=== PATIENT | male | born 1980 | race Caucasian/White ===

== ENCOUNTER 2017-09-19 19:49 | Emergency (ER) | payer OTHER ==
[2017-09-19] MEDS: NS 1,000 ML IV (20:32)
[2017-09-19] MEDS: dexameTHASONE 20 MG/5 ML VIAL (J1100) IV (20:36)
[2017-09-19] MEDS: CLINDAMYCIN 900 MG in APPROPRIATE DILUENT 1 EA IV (20:36)
[2017-09-19 20:53] LABS: BASO % 0.3 % (0.0-1.0); EOS # 0.2 10^3/uL (0.0-0.50); HEMATOCRIT 41.8 % (42.0-52.0); HEMOGLOBIN 13.6 g/dl (14.0-18.0); IMMATURE GRANULOCYTE # 0.1 10^3/uL (0-0); IMMATURE GRANULOCYTE % 0.4 % (0-0); LYMPH # 1.7 10^3/uL (1.5-4.5); LYMPH % 10.6 % (24.0-44.0); MEAN CORPUSCULAR HEMOGLOBIN 28.5 pg (27.0-33.0); MEAN CORPUSCULAR HGB CONC 32.5 g/dl (32.0-36.5); MEAN CORPUSCULAR VOLUME 87.4 fl (80.0-96.0); MONO # 1.4 10^3/uL (0.0-0.8); NEUTROPHILS # 12.4 10^3/uL (1.8-7.7); NEUTROPHILS % 78.7 % (36.0-66.0); PLATELET COUNT, AUTOMATED 400 10^3/uL (150-450); RED BLOOD COUNT 4.78 10^6/uL (4.30-6.10); RED CELL DISTRIBUTION WIDTH 12.3 % (11.5-14.5); WHITE BLOOD COUNT 15.7 10^3/uL (4.0-10.0)
[2017-09-19 21:11] LABS: ALBUMIN 4.2 GM/DL (3.2-5.2); ALBUMIN/GLOBULIN RATIO 1.02 (1.00-1.93); ALKALINE PHOSPHATASE 69 U/L (45-117); ALT/SGPT 27 U/L (12-78); ANION GAP 6 MEQ/L (8-16); AST/SGOT 23 U/L (7-37); BILIRUBIN,DIRECT 0.2 MG/DL (0.0-0.2); BILIRUBIN,TOTAL 0.7 MG/DL (0.2-1.0); BLOOD UREA NITROGEN 13 MG/DL (7-18); CALCIUM LEVEL 9.5 MG/DL (8.5-10.1); CARBON DIOXIDE LEVEL 31 MEQ/L (21-32); CHLORIDE LEVEL 99 MEQ/L (98-107); CREATININE FOR GFR 1.05 MG/DL (0.70-1.30); GLOMERULAR FILTRATION RATE > 60.0 (>60); GLUCOSE, FASTING 108 MG/DL (70-100); POTASSIUM SERUM 4.2 MEQ/L (3.5-5.1); SODIUM LEVEL 136 MEQ/L (136-145); TOTAL PROTEIN 8.3 GM/DL (6.4-8.2)
[2017-09-19 21:21] LABS: LACTIC ACID SEPSIS PROTOCOL 1.5 MMOL/L (0.4-2.0)
[2017-09-19] MEDS ORDERED: ISOVUE-370 76% 100ML VIAL (Q9967) As Ordered (21:27)
[2017-09-19] MEDS: LIDOCAINE 2% W/EPIN INJ 20ML **PRES FREE INJ (22:15)
[2017-09-19] MEDS ORDERED: CETACAINE SPRAY 5GM As Ordered (22:15)
[2017-09-19 22:34] LABS: INR 1.06; PROTHROMBIN TIME 13.9 SECONDS (12.4-14.5)
== END 2017-09-20 00:20 | disposition home or self-care (01) ==
LOC: M ED 09-20 00:20
DX: J36 Peritonsillar abscess (principal); Z98.890 Other specified postprocedural states
CPT/HCPCS: J1100

== ENCOUNTER 2017-09-22 09:33 | Emergency (ER) | payer OTHER ==
[2017-09-22 10:27] LABS: BASO % 0.3 % (0.0-1.0); EOS # 0.1 10^3/uL (0.0-0.50); EOS % 0.7 % (0.0-3.0); HEMATOCRIT 38.3 % (42.0-52.0); HEMOGLOBIN 12.9 g/dl (14.0-18.0); IMMATURE GRANULOCYTE # 0.1 10^3/uL (0-0); IMMATURE GRANULOCYTE % 0.4 % (0-0); LYMPH # 1.8 10^3/uL (1.5-4.5); LYMPH % 13.7 % (24.0-44.0); MEAN CORPUSCULAR HEMOGLOBIN 29.2 pg (27.0-33.0); MEAN CORPUSCULAR HGB CONC 33.7 g/dl (32.0-36.5); MEAN CORPUSCULAR VOLUME 86.7 fl (80.0-96.0); MONO # 1.3 10^3/uL (0.0-0.8); MONO % 9.6 % (0.0-5.0); NEUTROPHILS # 9.8 10^3/uL (1.8-7.7); NEUTROPHILS % 75.3 % (36.0-66.0); PLATELET COUNT, AUTOMATED 416 10^3/uL (150-450); RED BLOOD COUNT 4.42 10^6/uL (4.30-6.10); RED CELL DISTRIBUTION WIDTH 12.4 % (11.5-14.5)
[2017-09-22] MEDS: dexameTHASONE 20 MG/5 ML VIAL (J1100) IV (10:28)
[2017-09-22] MEDS: LevoFLOXacin IV 750 MG in APPROPRIATE DILUENT 1 EA IV (10:37)
[2017-09-22] MEDS: NS 1,000 ML IV (10:37)
[2017-09-22 10:57] LABS: ALBUMIN 4.1 GM/DL (3.2-5.2); ALBUMIN/GLOBULIN RATIO 0.91 (1.00-1.93); ALKALINE PHOSPHATASE 62 U/L (45-117); ALT/SGPT 27 U/L (12-78); ANION GAP 8 MEQ/L (8-16); AST/SGOT 24 U/L (7-37); BILIRUBIN,DIRECT 0.1 MG/DL (0.0-0.2); BILIRUBIN,TOTAL 0.5 MG/DL (0.2-1.0); BLOOD UREA NITROGEN 11 MG/DL (7-18); C REACTIVE PROTEIN QUANTITATIV 9.26 MG/DL (0.00-0.30); CALCIUM LEVEL 9.5 MG/DL (8.5-10.1); CARBON DIOXIDE LEVEL 28 MEQ/L (21-32); CHLORIDE LEVEL 99 MEQ/L (98-107); CREATININE FOR GFR 0.97 MG/DL (0.70-1.30); GLOMERULAR FILTRATION RATE > 60.0 (>60); GLUCOSE, FASTING 98 MG/DL (70-100); POTASSIUM SERUM 3.8 MEQ/L (3.5-5.1); SODIUM LEVEL 135 MEQ/L (136-145); TOTAL PROTEIN 8.6 GM/DL (6.4-8.2)
== END 2017-09-22 12:10 | disposition home or self-care (01) ==
LOC: M ED 09:33
DX: J36 Peritonsillar abscess (principal); Z79.2 Long term (current) use of antibiotics; Z79.899 Other long term (current) drug therapy; Z98.890 Other specified postprocedural states
CPT/HCPCS: J1956

== ENCOUNTER 2018-01-09 10:12 | Day surgery (SDC) | payer OTHER ==
[2018-01-09] MEDS: LR 1,000 ML IV ×2 (11:50)
[2018-01-09] MEDS: LIDOCAINE 1% MDV 20ML VIAL As Ordered ×2 (13:06)
[2018-01-09] MEDS: BUPIVACAINE HCL 0.25% 10 ML VIAL As Ordered ×2 (13:06)
[2018-01-09] MEDS ORDERED: SUCCINYLCHOLINE 100 MG/5 ML SYRINGE (J0330) As Ordered ×2 (13:09)
[2018-01-09] MEDS ORDERED: ROCURONIUM BROMIDE 50 MG/5 ML VIAL As Ordered ×2 (13:09)
[2018-01-09] MEDS ORDERED: PROPOFOL 200 MG/20 ML VIAL As Ordered ×8 (13:09→13:39)
[2018-01-09] MEDS ORDERED: dexameTHASONE 4 MG/ML 1ML VIAL (J1100) As Ordered ×6 (13:09)
[2018-01-09] MEDS ORDERED: ONDANSETRON 4MG/2ML VIAL (J2405) As Ordered ×2 (13:09)
[2018-01-09] MEDS ORDERED: MIDAZOLAM INJ 2 MG/2 ML VIAL (J2250) As Ordered ×2 (13:09)
[2018-01-09] MEDS ORDERED: fentaNYL 250 MCG/5 ML INJECTION (J3010) As Ordered ×2 (13:09)
[2018-01-09] MEDS ORDERED: GLYCOPYRROLATE INJ 0.2 MG/ML 2 ML VIAL As Ordered ×2 (13:10)
[2018-01-09] MEDS ORDERED: fentaNYL 100 MCG/2 ML INJECTION (J3010) As Ordered ×2 (14:05)
[2018-01-09] MEDS: fentaNYL 100 MCG/2 ML INJECTION (J3010) IV ×8 (14:08→14:55)
[2018-01-09] MEDS ORDERED: IBUPROFEN 100 MG/5 ML SUSP UDC DYE FREE As Ordered ×2 (14:24)
[2018-01-09] MEDS ORDERED: IBUPROFEN 600 MG TAB PO ×2 (14:30)
[2018-01-09] MEDS: ONDANSETRON 4MG/2ML VIAL (J2405) IV ×2 (14:30)
[2018-01-09] MEDS: IBUPROFEN 100 MG/5 ML SUSP UDC DYE FREE PO ×2 (14:30)
[2018-01-09] MEDS ORDERED: LR 1,000 ML IV ×2 (14:30)
== END 2018-01-09 16:15 | disposition home or self-care (01) ==
LOC: M SDC 10:12
DX: J35.01 Chronic tonsillitis (principal); Z87.09 Personal history of other diseases of the respiratory system; Z16.20 Resistance to unspecified antibiotic
CPT/HCPCS: 42826

== ENCOUNTER → 2022-10-24 | Outpatient (CLI) | payer OTHER ==
[~2022-10-24] MED LIST: ACET-716 PO; CEPA5.4L2 MT; CLAR1TAB13 PO; CLEO300C2 PO; FLON1SPR; LEVA750T7 PO; NAPR250T82 PO
[2022-10-24 13:47] LABS: PLATELET COUNT, AUTOMATED 374 10^3/uL (150-450)
[2022-10-24 13:59] LABS: INR 0.91; PARTIAL THROMBOPLASTIN TIME 29.2 SECONDS (24.8-34.2); PROTHROMBIN TIME 12.4 SECONDS (12.5-14.5)
== END ==
LOC: M PLALAB 10:47
PROVIDERS: ATTEND Physician Assistant
DX: Z01.812 Encounter for preprocedural laboratory examination (principal)

== ENCOUNTER 2023-03-04 14:18 | Observation (INO) | payer OTHER ==
[~2023-03-04] VITALS: Ht 188 cm; Wt 113.6 kg
[2023-03-04 16:11] LABS: BASO % 0.3 % (0.0-1.0); EOS % 0.1 % (0.0-3.0); LYMPH # 1.8 10^3/uL (1.5-5.0); LYMPH % 13.3 % (24.0-44.0); MEAN CORPUSCULAR HGB CONC 34.8 g/dl (32.0-36.5); MEAN CORPUSCULAR VOLUME 86.3 fl (80.0-96.0); MONO # 1.2 10^3/uL (0.0-0.8); MONO % 9.1 % (2.0-8.0); NEUTROPHILS # 10.5 10^3/uL (1.5-8.5); NEUTROPHILS % 76.9 % (36.0-66.0); PLATELET COUNT, AUTOMATED 437 10^3/uL (150-450); RED BLOOD COUNT 5.33 10^6/uL (4.30-6.10); WHITE BLOOD COUNT 13.6 10^3/uL (4.0-10.0)
[2023-03-04 16:21] LABS: LIPASE 31 U/L (12-53)
[2023-03-04 16:23] LABS: ALBUMIN 4.4 G/DL (3.2-5.2); ALKALINE PHOSPHATASE 62 U/L (46-116); ALT/SGPT 46 U/L (7.0-40); AST/SGOT 38 U/L (<34); BILIRUBIN,DIRECT 0.2 MG/DL (<0.4); BILIRUBIN,TOTAL 0.7 MG/DL (0.3-1.2); BLOOD UREA NITROGEN 7 MG/DL (9-23); CALCIUM LEVEL 9.4 MG/DL (8.5-10.1); CARBON DIOXIDE LEVEL 24 MMOL/L (20-31); CHLORIDE LEVEL 93 MMOL/L (98-107); CREATININE FOR GFR 0.84 MG/DL (0.70-1.30); GLOMERULAR FILTRATION RATE > 60.0 (>60); GLUCOSE, FASTING 110 MG/DL (60-100); POTASSIUM SERUM 3.2 MMOL/L (3.5-5.1); SODIUM LEVEL 134 MMOL/L (136-145); TOTAL PROTEIN 7.8 G/DL (5.7-8.2)
[2023-03-04 16:34] LABS: RSV AMPLIFICATION NEGATIVE (NEGATIVE)
[2023-03-04] MEDS ORDERED: NS 1,000 ML IV ONE ×2 (17:05→18:25)
[2023-03-04] MEDS ORDERED: BENZONATATE 100MG CAPSULE PO ONE (17:05)
[2023-03-04] MEDS ORDERED: POTASSIUM CHLORIDE 10MEQ SR TABLET PO ONE (17:05)
[2023-03-04] MEDS ORDERED: ONDANSETRON 4MG 2ML VIAL IV ONE ×2 (17:05→21:35)
[2023-03-04] MEDS: IPRATROPIUM 0.5MG/ALBUTEROL 2.5MG INH SOL UD 3ML (DUONEB) NEB PRN ×3 (17:46→20:18)
[2023-03-04 18:20] LABS: C REACTIVE PROTEIN QUANTITATIV < 0.40 MG/DL (<1.0)
[2023-03-04] MEDS ORDERED: ISOVUE-370 76% 100ML VIAL As Ordered ONE (18:38)
[2023-03-04] MEDS ORDERED: ACETAMINOPHEN 500 MG TAB PO ONE (19:20)
[2023-03-04] MEDS ORDERED: LR 1,000 ML IV ONE (21:55)
[2023-03-04] MEDS ORDERED: MED REC IN PROGRESS XX SCH (22:05)
[2023-03-04 22:18] LABS: MONO SCRN NEGATIVE (NEGATIVE)
[2023-03-04] MEDS ORDERED: IBUP-1427 PO (23:06)
[2023-03-04] MEDS ORDERED: ACET-897 PO (23:06)
[2023-03-04] MEDS ORDERED: HOME MED LIST COMPLETE! XX SCH (23:10)
[2023-03-04] MEDS ORDERED: ACETAMINOPHEN TAB 650MG DOSE (2X325MG) PO PRN (23:40)
[2023-03-05] VITALS (7 sets, daily range): BP systolic 154–171; BP diastolic 78–109; TEMP 98–98.7; O2SAT 96–99
[2023-03-05] MEDS ORDERED: ONDANSETRON 4MG 2ML VIAL IV PRN (01:00)
[2023-03-05] MEDS ORDERED: DEXTROMETHORPHAN 60MG/10ML SUSP 90ML BTL(DELSYM) PO PRN (01:00)
[2023-03-05 01:40] LABS: AMPHETAMINES LEVEL URINE NEGATIVE (NEGATIVE); BARBITURATES URINE NEGATIVE (NEGATIVE); BENZODIAZEPINES URINE NEGATIVE (NEGATIVE); CANNABINOIDS URINE NEGATIVE (NEGATIVE); COCAINE METABOLITE URINE NEGATIVE (NEGATIVE); METHADONE URINE NEGATIVE (NEGATIVE); OPIATES URINE NEGATIVE (NEGATIVE); PHENCYCLIDINE URINE NEGATIVE (NEGATIVE)
[2023-03-05 01:46] LABS: BLOOD UREA NITROGEN 9 MG/DL (9-23); CALCIUM LEVEL 9.3 MG/DL (8.5-10.1); CARBON DIOXIDE LEVEL 26 MMOL/L (20-31); CHLORIDE LEVEL 103 MMOL/L (98-107); CREATININE FOR GFR 0.91 MG/DL (0.70-1.30); GLOMERULAR FILTRATION RATE > 60.0 (>60); GLUCOSE, FASTING 103 MG/DL (60-100); POTASSIUM SERUM 3.9 MMOL/L (3.5-5.1); SODIUM LEVEL 137 MMOL/L (136-145)
[2023-03-05 02:24] LABS: ETHYL ALCOHOL (ETHANOL) < 0.003 % (0.000-0.010)
[2023-03-05] MEDS: LR 1,000 ML IV SCH ×2 (02:52→10:42)
[2023-03-05 03:17] LABS: PROCALCITONIN 0.06 ng/ml
[2023-03-05 06:46] LABS: ALBUMIN 3.7 G/DL (3.2-5.2); ALKALINE PHOSPHATASE 59 U/L (46-116); ALT/SGPT 37 U/L (7.0-40); AST/SGOT 57 U/L (<34); BLOOD UREA NITROGEN 9 MG/DL (9-23); CALCIUM LEVEL 8.6 MG/DL (8.5-10.1); CARBON DIOXIDE LEVEL 27 MMOL/L (20-31); CHLORIDE LEVEL 103 MMOL/L (98-107); CREATININE FOR GFR 0.89 MG/DL (0.70-1.30); GLOMERULAR FILTRATION RATE > 60.0 (>60); GLUCOSE, FASTING 122 MG/DL (60-100); POTASSIUM SERUM 3.8 MMOL/L (3.5-5.1); SODIUM LEVEL 139 MMOL/L (136-145); TOTAL PROTEIN 6.6 G/DL (5.7-8.2)
[2023-03-05 07:20] LABS: BASO % 0.4 % (0.0-1.0); EOS % 0.3 % (0.0-3.0); HEMATOCRIT 39.7 % (42.0-52.0); LYMPH # 1.9 10^3/uL (1.5-5.0); LYMPH % 20.1 % (24.0-44.0); MEAN CORPUSCULAR HEMOGLOBIN 29.8 pg (27.0-33.0); MEAN CORPUSCULAR HGB CONC 33.8 g/dl (32.0-36.5); MEAN CORPUSCULAR VOLUME 88.2 fl (80.0-96.0); MONO # 0.8 10^3/uL (0.0-0.8); MONO % 8.7 % (2.0-8.0); NEUTROPHILS # 6.7 10^3/uL (1.5-8.5); PLATELET COUNT, AUTOMATED 339 10^3/uL (150-450); WHITE BLOOD COUNT 9.6 10^3/uL (4.0-10.0)
[2023-03-05 07:30] LABS: HEMOGLOBIN 13.4 g/dl (13.5-17.5)
[2023-03-05 07:44] LABS: MAGNESIUM LEVEL 1.8 MG/DL (1.8-2.4)
[2023-03-05] MEDS ORDERED: CARVedilol 3.125 MG TAB PO SCH (09:00)
[2023-03-05] MEDS ORDERED: NICOTINE 14 MG/24 HR TRANSDERMAL TD SCH (09:00)
[2023-03-05] MEDS ORDERED: guaiFENesin ER 600 MG TAB PO SCH (09:00)
[2023-03-05] MEDS ORDERED: ENOXAPARIN 40MG/0.4ML SYRINGE (J1650 PER 10MG) SC SCH (09:00)
[2023-03-05] MEDS ORDERED: amLODIPine 5 MG TAB PO ONE ×2 (10:50→12:30)
[2023-03-05] MEDS ORDERED: **hydrALAZINE** 50 MG TAB PO ONE ×2 (16:20→17:25)
[2023-03-05] MEDS ORDERED: CARV6.25 PO (16:26)
[2023-03-05] MEDS ORDERED: MUCI600T31 PO (16:26)
[2023-03-05] MEDS ORDERED: AMLO1TAB25 PO (16:26)
[2023-03-05] MEDS ORDERED: ONDA4TAB6 PO (16:26)
[2023-03-06] MEDS ORDERED: amLODIPine 5 MG TAB PO SCH (09:00)
== END 2023-03-05 18:40 | disposition home or self-care (01) ==
LOC: M ED 14:18 → INTOOBSV 23:40 → M ED INP 23:40 → M MS5PR 03-05 02:05
PROVIDERS: ADMIT Internal Medicine; ATTEND Internal Medicine
DX: J22 Unspecified acute lower respiratory infection (principal); I10 Essential (primary) hypertension; R11.2 Nausea with vomiting, unspecified; E87.6 Hypokalemia; E87.21 Acute metabolic acidosis; E87.3 Alkalosis; R05.9 Cough, unspecified; J02.9 Acute pharyngitis, unspecified; J30.2 Other seasonal allergic rhinitis; Z87.891 Personal history of nicotine dependence; Z79.899 Other long term (current) drug therapy
CPT/HCPCS: 36415; 71046; 74177; 80048; 80053; 80076; 80307; 82077; 83605; 83690; 83735; 84145; 85025; 85652; 86140; 86308; 86618; 87040; 87486; 87581; 87631; 87633; 87798; 87880; 94640; 96361; 96372; 96374; 96376; 99284; J1650; J2405; Q9967

== ENCOUNTER 2023-03-18 08:20 | Inpatient (IN) | payer OTHER ==
[~2023-03-18] VITALS: Ht 188 cm; Wt 118.5 kg
[~2023-03-18 08:20] MED LIST changes: +ACET-897 PO; +AMLO1TAB25 PO; +CARV6.25 PO; +IBUP-1427 PO; +MUCI600T31 PO; +ONDA4TAB6 PO
[2023-03-18 09:28] LABS: HEMATOCRIT 42.9 % (42.0-52.0); HEMOGLOBIN 14.6 g/dl (13.5-17.5); MEAN CORPUSCULAR HEMOGLOBIN 29.6 pg (27.0-33.0); PLATELET COUNT, AUTOMATED 385 10^3/uL (150-450); RED BLOOD COUNT 4.93 10^6/uL (4.30-6.10); WHITE BLOOD COUNT 6.6 10^3/uL (4.0-10.0)
[2023-03-18] MEDS ORDERED: TELM1TAB33 PO (09:51)
[2023-03-18] MEDS ORDERED: NICO14DI31 TOP (09:51)
[2023-03-18 09:56] LABS: ETHYL ALCOHOL (ETHANOL) 0.213 % (0.000-0.010)
[2023-03-18 09:57] LABS: SALICYLATE LEVEL < 3.0 MG/DL (<30)
[2023-03-18 09:58] LABS: ALBUMIN 4.1 G/DL (3.2-5.2); ALKALINE PHOSPHATASE 76 U/L (46-116); ALT/SGPT 46 U/L (7.0-40); AST/SGOT 60 U/L (<34); BILIRUBIN,DIRECT 0.1 MG/DL (<0.4); BILIRUBIN,TOTAL 0.4 MG/DL (0.3-1.2); BLOOD UREA NITROGEN 6 MG/DL (9-23); CALCIUM LEVEL 9.5 MG/DL (8.5-10.1); CARBON DIOXIDE LEVEL 22 MMOL/L (20-31); CHLORIDE LEVEL 99 MMOL/L (98-107); CREATININE FOR GFR 0.93 MG/DL (0.70-1.30); GLOMERULAR FILTRATION RATE > 60.0 (>60); GLUCOSE, FASTING 119 MG/DL (60-100); POTASSIUM SERUM 3.3 MMOL/L (3.5-5.1); SODIUM LEVEL 139 MMOL/L (136-145); TOTAL PROTEIN 7.8 G/DL (5.7-8.2)
[2023-03-18] MEDS ORDERED: HOME MED LIST COMPLETE! XX SCH (10:00)
[2023-03-18 10:02] LABS: THYROID STIMULATING HORMONE 0.915 uIU/ML (0.55-4.78)
[2023-03-18] MEDS ORDERED: POTASSIUM CHLORIDE 10MEQ SR TABLET PO ONE (11:00)
[2023-03-18 11:36] LABS: AMPHETAMINES LEVEL URINE NEGATIVE (NEGATIVE); BENZODIAZEPINES URINE NEGATIVE (NEGATIVE)
[2023-03-18 11:37] LABS: BARBITURATES URINE NEGATIVE (NEGATIVE); CANNABINOIDS URINE NEGATIVE (NEGATIVE); COCAINE METABOLITE URINE NEGATIVE (NEGATIVE); METHADONE URINE NEGATIVE (NEGATIVE); OPIATES URINE NEGATIVE (NEGATIVE); PHENCYCLIDINE URINE NEGATIVE (NEGATIVE)
[2023-03-18] MEDS ORDERED: cloNIDine 0.1MG TABLET PO ONE (18:10)
[2023-03-18] MEDS ORDERED: cloNIDine HCL 0.2 MG/24 HR PATCH TOP ONE (19:40)
[2023-03-18] MEDS ORDERED: cloNIDine 0.2 MG TAB PO ONE (20:00)
[2023-03-18] MEDS ORDERED: MOM 30ML SUSPENSION UDC PO PRN (21:45)
[2023-03-18] MEDS ORDERED: ACETAMINOPHEN TAB 650MG DOSE (2X325MG) PO PRN (21:45)
[2023-03-18] MEDS ORDERED: diphenhydrAMINE 25MG CAP PO PRN (21:45)
[2023-03-18] MEDS ORDERED: IBUPROFEN 400MG TAB PO PRN (21:45)
[2023-03-18] MEDS ORDERED: MAALOX 30 ML SUSP *UDC PO PRN (21:45)
[2023-03-18] MEDS ORDERED: traZODone 50 MG TAB PO PRN (21:45)
[2023-03-18 22:05] VITALS: BP 138/82; TEMP 97.5; O2SAT 100
[2023-03-19 05:53] VITALS: BP 148/84; TEMP 98.4; O2SAT 98
[2023-03-19 08:24] VITALS: BP 158/96
[2023-03-19] MEDS: NICOTINE 14 MG/24 HR TRANSDERMAL TOP SCH (08:26)
[2023-03-19] MEDS: SERTRALINE HCL 25 MG TABLET PO SCH (08:26)
[2023-03-19] MEDS: TELMISARTAN 20 MG TAB PO SCH (09:42)
[2023-03-19 09:44] LABS: BLOOD UREA NITROGEN 6 MG/DL (9-23); CALCIUM LEVEL 9.7 MG/DL (8.5-10.1); CARBON DIOXIDE LEVEL 24 MMOL/L (20-31); CHLORIDE LEVEL 99 MMOL/L (98-107); CREATININE FOR GFR 0.91 MG/DL (0.70-1.30); GLOMERULAR FILTRATION RATE > 60.0 (>60); GLUCOSE, FASTING 107 MG/DL (60-100); POTASSIUM SERUM 3.2 MMOL/L (3.5-5.1); SODIUM LEVEL 134 MMOL/L (136-145)
[2023-03-19] MEDS ORDERED: POTASSIUM CHLORIDE 10MEQ SR TABLET PO ONE (10:15)
[2023-03-19 17:52] VITALS: BP 140/98; TEMP 98; O2SAT 99
[2023-03-20 07:53] VITALS: BP 143/90
[2023-03-20] MEDS: SERTRALINE HCL 25 MG TABLET PO SCH (07:53)
[2023-03-20] MEDS: TELMISARTAN 20 MG TAB PO SCH (07:54)
[2023-03-20] MEDS: NICOTINE 14 MG/24 HR TRANSDERMAL TOP SCH (07:55)
[2023-03-20] MEDS ORDERED: TRAZ-252 PO (12:51)
[2023-03-20] MEDS ORDERED: SERT25TA21 PO (12:51)
== END 2023-03-20 13:48 | disposition home or self-care (01) | DRG 881 ==
LOC: M ED 08:20 → M ED INP 21:43 → M PSY 22:09
PROVIDERS: ADMIT Student in an Organized Health Care Education/Training Program; ATTEND Student in an Organized Health Care Education/Training Program
DX: F43.21 Adjustment disorder with depressed mood (principal); R45.851 Suicidal ideations; E87.20 Acidosis, unspecified; F41.1 Generalized anxiety disorder; F10.10 Alcohol abuse, uncomplicated; E87.6 Hypokalemia; I10 Essential (primary) hypertension; F17.200 Nicotine dependence, unspecified, uncomplicated; Z79.899 Other long term (current) drug therapy; Z20.822 Contact with and (suspected) exposure to COVID-19; Z90.49 Acquired absence of other specified parts of digestive tract

== ENCOUNTER 2023-04-07 16:40 | Inpatient (IN) | payer OTHER ==
[~2023-04-07] VITALS: Ht 188 cm; Wt 113.6 kg
[~2023-04-07 16:40] MED LIST changes: +NICO14DI31 TOP; +SERT25TA21 PO; +TELM1TAB33 PO; +TRAZ-252 PO
[2023-04-07 17:41] LABS: HEMATOCRIT 45.4 % (42.0-52.0); HEMOGLOBIN 15.6 g/dl (13.5-17.5); MEAN CORPUSCULAR HEMOGLOBIN 29.7 pg (27.0-33.0); MEAN CORPUSCULAR HGB CONC 34.4 g/dl (32.0-36.5); MEAN CORPUSCULAR VOLUME 86.5 fl (80.0-96.0); PLATELET COUNT, AUTOMATED 430 10^3/uL (150-450); RED BLOOD COUNT 5.25 10^6/uL (4.30-6.10); WHITE BLOOD COUNT 7.7 10^3/uL (4.0-10.0)
[2023-04-07 18:01] LABS: ACETAMINOPHEN LEVEL < 2.0 UG/ML (10.0-20.0)
[2023-04-07 18:02] LABS: SALICYLATE LEVEL < 3.0 MG/DL (<30)
[2023-04-07 18:04] LABS: THYROID STIMULATING HORMONE 2.402 uIU/ML (0.55-4.78)
[2023-04-07 18:21] LABS: ALBUMIN 4.1 G/DL (3.2-5.2); ALKALINE PHOSPHATASE 83 U/L (46-116); ALT/SGPT 39 U/L (7.0-40); AST/SGOT 32 U/L (<34); BILIRUBIN,DIRECT < 0.1 MG/DL (<0.4); BILIRUBIN,TOTAL 0.3 MG/DL (0.3-1.2); BLOOD UREA NITROGEN < 5 MG/DL (9-23); CALCIUM LEVEL 9.7 MG/DL (8.5-10.1); CARBON DIOXIDE LEVEL 25 MMOL/L (20-31); CHLORIDE LEVEL 101 MMOL/L (98-107); CREATININE FOR GFR 0.89 MG/DL (0.70-1.30); ETHYL ALCOHOL (ETHANOL) 0.323 % (0.000-0.010); GLOMERULAR FILTRATION RATE > 60.0 (>60); GLUCOSE, FASTING 113 MG/DL (60-100); POTASSIUM SERUM 3.8 MMOL/L (3.5-5.1); SODIUM LEVEL 141 MMOL/L (136-145); TOTAL PROTEIN 7.9 G/DL (5.7-8.2)
[2023-04-07] MEDS ORDERED: MED REC CURRENTLY UNOBTAINABLE XX SCH (20:45)
[2023-04-07] MEDS ORDERED: ONDANSETRON 4MG ORAL DISINTEGRATING TAB PO ONE (21:20)
[2023-04-07 21:37] LABS: AMPHETAMINES LEVEL URINE NEGATIVE (NEGATIVE); BARBITURATES URINE NEGATIVE (NEGATIVE); BENZODIAZEPINES URINE NEGATIVE (NEGATIVE); CANNABINOIDS URINE NEGATIVE (NEGATIVE); COCAINE METABOLITE URINE NEGATIVE (NEGATIVE); METHADONE URINE NEGATIVE (NEGATIVE); OPIATES URINE NEGATIVE (NEGATIVE); PHENCYCLIDINE URINE NEGATIVE (NEGATIVE)
[2023-04-08] MEDS ORDERED: ONDANSETRON 4MG ORAL DISINTEGRATING TAB PO ONE (04:05)
[2023-04-08] MEDS: LORazepam 2 MG TAB PO PRN ×4 (04:27→12:12)
[2023-04-08] MEDS: THIAMINE 100 MG TAB PO SCH ×2 (07:35→20:00)
[2023-04-08] MEDS: FOLIC ACID 1MG TAB PO SCH (07:35)
[2023-04-08] MEDS: MULTIVITAMINS/MINERALS THERAP 1 TAB PO SCH (07:35)
[2023-04-08] MEDS ORDERED: TELM1TAB33 PO (08:37)
[2023-04-08] MEDS ORDERED: SERT50TA29 PO (08:37)
[2023-04-08] MEDS ORDERED: AMLO1TAB25 PO (08:37)
[2023-04-08] MEDS ORDERED: NICO7DIS30 TOP (08:37)
[2023-04-08] MEDS ORDERED: HOME MED LIST COMPLETE! XX SCH (08:40)
[2023-04-08] MEDS: SERTRALINE HCL 50 MG TAB PO SCH (08:55)
[2023-04-08] MEDS: TELMISARTAN 20 MG TAB PO SCH (09:14)
[2023-04-08] MEDS: NICOTINE 7 MG/24 HR TRANSDERMAL TOP SCH (09:18)
[2023-04-08] MEDS ORDERED: ACETAMINOPHEN TAB 650MG DOSE (2X325MG) PO ONE (12:00)
[2023-04-08] MEDS ORDERED: MOM 30ML SUSPENSION UDC PO PRN (12:55)
[2023-04-08] MEDS ORDERED: IBUPROFEN 400MG TAB PO PRN (12:55)
[2023-04-08] MEDS ORDERED: ACETAMINOPHEN TAB 650MG DOSE (2X325MG) PO PRN (12:55)
[2023-04-08] MEDS ORDERED: MAALOX 30 ML SUSP *UDC PO PRN (12:55)
[2023-04-08] MEDS ORDERED: diphenhydrAMINE 25MG CAP PO PRN (12:55)
[2023-04-08 15:05] VITALS: BP 140/89; TEMP 98.5; O2SAT 98
[2023-04-08 16:30] VITALS: BP 140/89
[2023-04-08] MEDS: traZODone 50 MG TAB PO PRN (20:00)
[2023-04-09] VITALS (7 sets, daily range): BP systolic 140–161; BP diastolic 86–97; TEMP 96.8–97.3; O2SAT 100
[2023-04-09] MEDS: MULTIVITAMINS/MINERALS THERAP 1 TAB PO SCH (08:08)
[2023-04-09] MEDS: SERTRALINE HCL 50 MG TAB PO SCH (08:09)
[2023-04-09] MEDS: THIAMINE 100 MG TAB PO SCH ×2 (08:09→20:00)
[2023-04-09] MEDS: FOLIC ACID 1MG TAB PO SCH (08:09)
[2023-04-09] MEDS: TELMISARTAN 20 MG TAB PO SCH (08:10)
[2023-04-09] MEDS: NICOTINE 7 MG/24 HR TRANSDERMAL TOP SCH (08:10)
[2023-04-09] MEDS: traZODone 50 MG TAB PO PRN (20:00)
[2023-04-10 06:23] VITALS: BP 131/86; TEMP 98; O2SAT 99
[2023-04-10 08:01] VITALS: BP 164/88
[2023-04-10] MEDS: TELMISARTAN 20 MG TAB PO SCH (08:03)
[2023-04-10] MEDS: SERTRALINE HCL 25 MG TABLET PO SCH (08:04)
[2023-04-10] MEDS: THIAMINE 100 MG TAB PO SCH ×2 (08:05→20:12)
[2023-04-10] MEDS: busPIRone 5 MG TAB PO SCH ×2 (08:05→20:12)
[2023-04-10] MEDS: MULTIVITAMINS/MINERALS THERAP 1 TAB PO SCH (08:05)
[2023-04-10] MEDS: FOLIC ACID 1MG TAB PO SCH (08:06)
[2023-04-10] MEDS: NICOTINE 7 MG/24 HR TRANSDERMAL TOP SCH (08:06)
[2023-04-10] MEDS ORDERED: TELMISARTAN 20 MG TAB PO ONE (12:00)
[2023-04-10] MEDS ORDERED: MICA5TAB PO (13:09)
[2023-04-10] MEDS ORDERED: VITMTA PO (13:09)
[2023-04-10] MEDS ORDERED: ZOLO100T PO (13:09)
[2023-04-10] MEDS ORDERED: FOLI1TAB11 PO (13:09)
[2023-04-10] MEDS ORDERED: BUSP5TA PO (13:09)
[2023-04-10] MEDS ORDERED: THIA100TA PO (13:09)
[2023-04-10 16:00] VITALS: BP_SYST 148; BP_SYST 158; BP_DIAS 88; BP_DIAS 95; TEMP 96.7; O2SAT 100
[2023-04-10] MEDS: traZODone 50 MG TAB PO PRN (20:12)
[2023-04-10 22:00] VITALS: BP 156/88
[2023-04-10] MEDS ORDERED: **hydrALAZINE HCL** 25 MG TAB PO ONE (22:20)
[2023-04-11 06:00] VITALS: BP 147/82; TEMP 97.6; O2SAT 96
[2023-04-11] MEDS: busPIRone 5 MG TAB PO SCH (08:07)
[2023-04-11] MEDS: SERTRALINE HCL 25 MG TABLET PO SCH (08:07)
[2023-04-11] MEDS ORDERED: TELMISARTAN 20 MG TAB PO SCH (09:00)
[2023-04-11 09:25] VITALS: BP 135/92
== END 2023-04-11 10:18 | disposition home or self-care (01) | DRG 881 ==
LOC: M ED 16:40 → M ED INP 04-08 12:51 → M PSY 04-08 15:03
PROVIDERS: ADMIT Student in an Organized Health Care Education/Training Program; ATTEND Student in an Organized Health Care Education/Training Program
DX: F32.A Depression, unspecified (principal); F10.24 Alcohol dependence with alcohol-induced mood disorder; F41.9 Anxiety disorder, unspecified; F17.200 Nicotine dependence, unspecified, uncomplicated; I10 Essential (primary) hypertension; J30.2 Other seasonal allergic rhinitis; F10.229 Alcohol dependence with intoxication, unspecified; Z63.5 Disruption of family by separation and divorce; Z79.899 Other long term (current) drug therapy; Z59.9 Problem related to housing and economic circumstances, unspecified

== ENCOUNTER 2023-04-21 11:42 | Emergency (ER) | payer OTHER ==
[~2023-04-21] VITALS: Ht 188 cm; Wt 112.7 kg
[2023-04-21] MEDS: TELMISARTAN 20 MG TAB PO SCH (09:00)
[2023-04-21] MEDS: NICOTINE 7 MG/24 HR TRANSDERMAL TOP SCH (09:00)
[~2023-04-21 11:42] MED LIST changes: +BUSP5TA PO; +FOLI1TAB11 PO; +MICA5TAB PO; +NICO7DIS30 TOP; +SERT50TA29 PO; +THIA100TA PO; +VITMTA PO; +ZOLO100T PO
[2023-04-21] MEDS: LORazepam 2 MG TAB PO PRN (12:31)
[2023-04-21 13:23] LABS: HEMATOCRIT 45.7 % (42.0-52.0); MEAN CORPUSCULAR VOLUME 85.6 fl (80.0-96.0); PLATELET COUNT, AUTOMATED 420 10^3/uL (150-450); RED BLOOD COUNT 5.34 10^6/uL (4.30-6.10); WHITE BLOOD COUNT 8.1 10^3/uL (4.0-10.0)
[2023-04-21 13:57] LABS: ACETAMINOPHEN LEVEL < 2.0 UG/ML (10.0-20.0); ALKALINE PHOSPHATASE 84 U/L (46-116); ALT/SGPT 42 U/L (7.0-40); AST/SGOT 45 U/L (<34); BILIRUBIN,DIRECT 0.2 MG/DL (<0.4); BILIRUBIN,TOTAL 0.5 MG/DL (0.3-1.2); BLOOD UREA NITROGEN 12 MG/DL (9-23); CALCIUM LEVEL 9.2 MG/DL (8.5-10.1); CARBON DIOXIDE LEVEL 23 MMOL/L (20-31); CHLORIDE LEVEL 98 MMOL/L (98-107); CREATININE FOR GFR 0.85 MG/DL (0.70-1.30); GLOMERULAR FILTRATION RATE > 60.0 (>60); GLUCOSE, FASTING 124 MG/DL (60-100); POTASSIUM SERUM 3.7 MMOL/L (3.5-5.1); SALICYLATE LEVEL < 3.0 MG/DL (<30); SODIUM LEVEL 136 MMOL/L (136-145)
[2023-04-21 13:59] LABS: THYROID STIMULATING HORMONE 2.121 uIU/ML (0.55-4.78)
[2023-04-21 14:14] LABS: ETHYL ALCOHOL (ETHANOL) 0.291 % (0.000-0.010)
[2023-04-21] MEDS ORDERED: ACET-840 (16:03)
[2023-04-21] MEDS ORDERED: ACETAMINOPHEN 500 MG TAB PO PRN (17:00)
[2023-04-21] MEDS: SERTRALINE 100 MG TAB PO SCH (18:05)
[2023-04-21] MEDS: ACETAMINOPHEN 500 MG TAB PO PRN (18:06)
[2023-04-21 18:39] LABS: AMPHETAMINES LEVEL URINE NEGATIVE (NEGATIVE); BARBITURATES URINE NEGATIVE (NEGATIVE); COCAINE METABOLITE URINE NEGATIVE (NEGATIVE)
[2023-04-21 18:40] LABS: BENZODIAZEPINES URINE NEGATIVE (NEGATIVE); CANNABINOIDS URINE NEGATIVE (NEGATIVE); METHADONE URINE NEGATIVE (NEGATIVE); OPIATES URINE NEGATIVE (NEGATIVE); PHENCYCLIDINE URINE NEGATIVE (NEGATIVE)
[2023-04-21] MEDS: THIAMINE 100 MG TAB PO SCH (21:00)
[2023-04-21] MEDS ORDERED: LORazepam 2 MG TAB PO PRN (21:25)
[2023-04-21] MEDS: busPIRone 5 MG TAB PO SCH (21:41)
[2023-04-21] MEDS ORDERED: BUSP5TA PO (22:36)
[2023-04-21] MEDS ORDERED: MICA40TA PO (22:36)
[2023-04-21] MEDS ORDERED: ZOLO100T PO (22:36)
[2023-04-21] MEDS ORDERED: NICO7DIS24 TD (22:36)
[2023-04-21] MEDS ORDERED: AMLO1TAB25 PO (22:36)
[2023-04-21] MEDS ORDERED: HOME MED LIST COMPLETE! XX SCH (22:40)
[2023-04-22 05:38] VITALS: TEMP 98.3
[2023-04-22] MEDS: ACETAMINOPHEN 500 MG TAB PO PRN (06:30)
[2023-04-22] MEDS ORDERED: FOLIC ACID 1MG TAB PO SCH (09:00)
[2023-04-22] MEDS ORDERED: MULTIVITAMINS/MINERALS THERAP 1 TAB PO SCH (09:00)
[2023-04-22] MEDS: NICOTINE 7 MG/24 HR TRANSDERMAL TOP SCH (09:02)
[2023-04-22] MEDS: THIAMINE 100 MG TAB PO SCH (09:02)
[2023-04-22] MEDS: SERTRALINE 100 MG TAB PO SCH (09:02)
[2023-04-22] MEDS: busPIRone 5 MG TAB PO SCH (09:02)
[2023-04-22] MEDS: TELMISARTAN 20 MG TAB PO SCH (09:03)
[2023-04-22 09:09] VITALS: BP 169/81
[2023-04-22] MEDS: LORazepam 2 MG TAB PO PRN (09:11)
[2023-04-22 09:59] VITALS: BP 173/94; O2SAT 99
== END 2023-04-22 10:01 ==
LOC: M ED 11:42
DX: F10.20 Alcohol dependence, uncomplicated (principal); F32.A Depression, unspecified; I45.81 Long QT syndrome; I11.9 Hypertensive heart disease without heart failure; I25.10 Atherosclerotic heart disease of native coronary artery without angina pectoris; Z87.891 Personal history of nicotine dependence; G47.33 Obstructive sleep apnea (adult) (pediatric)

== ENCOUNTER 2023-09-21 15:48 | Emergency (ER) | payer OTHER ==
[~2023-09-21] VITALS: Ht 188 cm; Wt 118.1 kg
[~2023-09-21 15:48] MED LIST changes: +ACET-840; +MICA40TA PO; +NICO7DIS24 TD
[2023-09-21 15:49] VITALS: TEMP 97.4
[2023-09-21] MEDS ORDERED: GABA800T4 (16:05)
[2023-09-21] MEDS ORDERED: BUPR300T92 (16:05)
[2023-09-21] MEDS ORDERED: VALA1TAB5 PO ×2 (18:07→18:14)
[2023-09-21 18:18] VITALS: BP 148/76; O2SAT 99
== END 2023-09-21 18:20 | disposition home or self-care (01) ==
LOC: M ED 15:48
DX: J02.9 Acute pharyngitis, unspecified (principal); K12.0 Recurrent oral aphthae; I10 Essential (primary) hypertension; F32.A Depression, unspecified; Z91.048 Other nonmedicinal substance allergy status; Z79.2 Long term (current) use of antibiotics; Z79.899 Other long term (current) drug therapy

== ENCOUNTER 2023-11-04 23:21 | Emergency (ER) | payer OTHER ==
[~2023-11-04] VITALS: Ht 188 cm; Wt 113.6 kg
[~2023-11-04 23:21] MED LIST changes: +BUPR300T92; +GABA800T4; +VALA1TAB5 PO
[2023-11-05 02:16] VITALS: BP 124/84; TEMP 98.8; O2SAT 98
== END 2023-11-05 02:21 | disposition home or self-care (01) ==
LOC: M ED 23:21
DX: S00.83XA Contusion of other part of head, initial encounter (principal); R51.9 Headache, unspecified; Y04.0XXA Assault by unarmed brawl or fight, initial encounter; Y92.89 Other specified places as the place of occurrence of the external cause; Y93.89 Activity, other specified; Y99.9 Unspecified external cause status; Z98.890 Other specified postprocedural states; Z98.1 Arthrodesis status; I10 Essential (primary) hypertension; F32.A Depression, unspecified; G47.33 Obstructive sleep apnea (adult) (pediatric); J30.2 Other seasonal allergic rhinitis; Z79.899 Other long term (current) drug therapy

== ENCOUNTER 2023-11-10 09:15 | Emergency (ER) | payer OTHER ==
[~2023-11-10] VITALS: Ht 188 cm; Wt 113.6 kg
[~2023-11-10 09:15] MED LIST changes: -BUPR300T92; +BUPR300T92 PO; -GABA800T4; +GABA800T4 PO
[2023-11-10] MEDS ORDERED: PERCOCET PO (09:31)
[2023-11-10 11:54] LABS: HEMATOCRIT 41.7 % (42.0-52.0); HEMOGLOBIN 14.3 g/dl (13.5-17.5); MEAN CORPUSCULAR HEMOGLOBIN 28.1 pg (27.0-33.0); MEAN CORPUSCULAR HGB CONC 34.3 g/dl (32.0-36.5); MEAN CORPUSCULAR VOLUME 81.9 fl (80.0-96.0); PLATELET COUNT, AUTOMATED 451 10^3/uL (150-450); RED BLOOD COUNT 5.09 10^6/uL (4.30-6.10); WHITE BLOOD COUNT 10.8 10^3/uL (4.0-10.0)
[2023-11-10 12:42] LABS: AMPHETAMINES LEVEL URINE NEGATIVE (NEGATIVE); BARBITURATES URINE NEGATIVE (NEGATIVE); BENZODIAZEPINES URINE NEGATIVE (NEGATIVE); COCAINE METABOLITE URINE NEGATIVE (NEGATIVE); METHADONE URINE NEGATIVE (NEGATIVE); OPIATES URINE NEGATIVE (NEGATIVE)
[2023-11-10 12:43] LABS: CANNABINOIDS URINE NEGATIVE (NEGATIVE); PHENCYCLIDINE URINE NEGATIVE (NEGATIVE)
[2023-11-10] MEDS: THIAMINE 100 MG TAB PO SCH (12:51)
[2023-11-10] MEDS: MULTIVITAMINS/MINERALS THERAP 1 TAB PO SCH (12:51)
[2023-11-10] MEDS: FOLIC ACID 1MG TAB PO SCH (12:51)
[2023-11-10] MEDS ORDERED: CETI-25 PO (13:00)
[2023-11-10] MEDS ORDERED: MAGN400C2 PO (13:00)
[2023-11-10] MEDS ORDERED: K2 P1TAB PO (13:00)
[2023-11-10] MEDS ORDERED: MULTTAB61 PO (13:00)
[2023-11-10 13:04] LABS: ETHYL ALCOHOL (ETHANOL) 0.298 % (0.000-0.010)
[2023-11-10 13:05] LABS: ALBUMIN 4.1 G/DL (3.2-5.2); ALKALINE PHOSPHATASE 79 U/L (46-116); ALT/SGPT 75 U/L (7.0-40); AST/SGOT 92 U/L (<34); BILIRUBIN,DIRECT 0.2 MG/DL (<0.4); BILIRUBIN,TOTAL 0.5 MG/DL (0.3-1.2); BLOOD UREA NITROGEN 15 MG/DL (9-23); CARBON DIOXIDE LEVEL 24 MMOL/L (20-31); CHLORIDE LEVEL 100 MMOL/L (98-107); CREATININE FOR GFR 0.77 MG/DL (0.70-1.30); GLOMERULAR FILTRATION RATE > 60.0 (>60); GLUCOSE, FASTING 109 MG/DL (60-100); POTASSIUM SERUM 4.3 MMOL/L (3.5-5.1); SALICYLATE LEVEL < 3.0 MG/DL (<30); SODIUM LEVEL 137 MMOL/L (136-145); THYROID STIMULATING HORMONE 1.705 uIU/ML (0.55-4.78); TOTAL PROTEIN 7.7 G/DL (5.7-8.2)
[2023-11-10] MEDS ORDERED: HOME MED LIST COMPLETE! XX SCH (13:05)
[2023-11-10] MEDS: PANTOPRAZOLE 40MG TAB (PROTONIX) PO ONE (14:41)
[2023-11-10] MEDS: MAALOX 30 ML SUSP *UDC PO ONE (14:41)
[2023-11-10] MEDS: LORazepam 2 MG TAB PO PRN (14:41)
[2023-11-10] MEDS: PERCOCET 5MG/325MG TAB PO ONE (19:02)
[2023-11-10] MEDS: GABAPENTIN 400MG CAP PO SCH (21:22)
[2023-11-10 23:58] VITALS: BP 167/84
[2023-11-11 07:58] VITALS: BP 142/91; TEMP 99.1; O2SAT 97
[2023-11-11] MEDS ORDERED: TELMISARTAN 20 MG TAB PO SCH (09:00)
[2023-11-11] MEDS ORDERED: SERTRALINE 100 MG TAB PO SCH (09:00)
[2023-11-11] MEDS ORDERED: busPIRone 5 MG TAB PO SCH (09:00)
[2023-11-11] MEDS ORDERED: buPROPion **XL** TABLET 150MG (WELLBUTRIN XL) PO SCH (09:00)
== END 2023-11-11 08:07 | disposition home or self-care (01) ==
LOC: EDBD 09:15 → M ED 09:15
DX: F32.A Depression, unspecified (principal); F10.120 Alcohol abuse with intoxication, uncomplicated; R94.31 Abnormal electrocardiogram [ECG] [EKG]; Z91.09 Other allergy status, other than to drugs and biological substances; Z79.899 Other long term (current) drug therapy; Z79.810 Long term (current) use of selective estrogen receptor modulators (SERMs)

== ENCOUNTER 2023-11-24 15:10 | Inpatient (IN) | payer OTHER ==
[~2023-11-24] VITALS: Ht 188 cm; Wt 110.3 kg
[~2023-11-24 15:10] MED LIST changes: +CETI-25 PO; +K2 P1TAB PO; +MAGN400C2 PO; +MULTTAB61 PO; +PERCOCET PO
[2023-11-24] MEDS: TELMISARTAN 20 MG TAB PO ONE (16:35)
[2023-11-24] MEDS ORDERED: HOME MED LIST COMPLETE! XX SCH (16:35)
[2023-11-24 17:05] LABS: AMPHETAMINES LEVEL URINE NEGATIVE (NEGATIVE); BARBITURATES URINE NEGATIVE (NEGATIVE); BENZODIAZEPINES URINE NEGATIVE (NEGATIVE); COCAINE METABOLITE URINE NEGATIVE (NEGATIVE)
[2023-11-24 17:06] LABS: CANNABINOIDS URINE NEGATIVE (NEGATIVE); METHADONE URINE NEGATIVE (NEGATIVE); OPIATES URINE NEGATIVE (NEGATIVE); PHENCYCLIDINE URINE NEGATIVE (NEGATIVE)
[2023-11-24 17:08] LABS: SALICYLATE LEVEL < 3.0 MG/DL (<30)
[2023-11-24 17:09] LABS: ALBUMIN 4.4 G/DL (3.2-5.2); ALKALINE PHOSPHATASE 86 U/L (46-116); ALT/SGPT 63 U/L (7.0-40); AST/SGOT 54 U/L (<34); BILIRUBIN,DIRECT 0.2 MG/DL (<0.4); BILIRUBIN,TOTAL 0.6 MG/DL (0.3-1.2); BLOOD UREA NITROGEN 10 MG/DL (9-23); CALCIUM LEVEL 9.4 MG/DL (8.5-10.1); CARBON DIOXIDE LEVEL 27 MMOL/L (20-31); CHLORIDE LEVEL 98 MMOL/L (98-107); CREATININE FOR GFR 0.86 MG/DL (0.70-1.30); GLOMERULAR FILTRATION RATE > 60.0 (>60); GLUCOSE, FASTING 111 MG/DL (60-100); POTASSIUM SERUM 3.6 MMOL/L (3.5-5.1); SODIUM LEVEL 134 MMOL/L (136-145); TOTAL PROTEIN 7.6 G/DL (5.7-8.2)
[2023-11-24 17:11] LABS: THYROID STIMULATING HORMONE 2.321 uIU/ML (0.55-4.78)
[2023-11-24 17:21] LABS: ETHYL ALCOHOL (ETHANOL) 0.302 % (0.000-0.010)
[2023-11-24 18:24] LABS: HEMATOCRIT 42.2 % (42.0-52.0); HEMOGLOBIN 14.6 g/dl (13.5-17.5); MEAN CORPUSCULAR HEMOGLOBIN 28.5 pg (27.0-33.0); MEAN CORPUSCULAR HGB CONC 34.6 g/dl (32.0-36.5); MEAN CORPUSCULAR VOLUME 82.4 fl (80.0-96.0); PLATELET COUNT, AUTOMATED 439 10^3/uL (150-450); RED BLOOD COUNT 5.12 10^6/uL (4.30-6.10); WHITE BLOOD COUNT 9.6 10^3/uL (4.0-10.0)
[2023-11-24] MEDS: OXAZEPAM 15MG CAP PO ONE (19:23)
[2023-11-24] MEDS: LORazepam 2 MG TAB PO ONE (22:27)
[2023-11-25] MEDS ORDERED: buPROPion 75 MG TAB PO PRN (07:50)
[2023-11-25] MEDS: SERTRALINE 100 MG TAB PO SCH (08:16)
[2023-11-25] MEDS: CETIRIZINE (ZyrTEC) 10 MG TAB PO SCH (08:16)
[2023-11-25] MEDS: buPROPion **XL** TABLET 150MG (WELLBUTRIN XL) PO SCH (08:17)
[2023-11-25] MEDS: MULTIVITAMINS/MINERALS THERAP 1 TAB PO SCH (08:17)
[2023-11-25] MEDS: MAGNESIUM OXIDE 400MG TAB (MAG-OX) PO SCH (08:17)
[2023-11-25] MEDS: TELMISARTAN 20 MG TAB PO SCH (08:54)
[2023-11-25] MEDS ORDERED: LORazepam 2 MG TAB PO PRN (10:20)
[2023-11-25] MEDS: FOLIC ACID 1MG TAB PO SCH (10:34)
[2023-11-25] MEDS: THIAMINE 100 MG TAB PO SCH ×2 (10:35→20:00)
[2023-11-25] MEDS ORDERED: MOM 30ML SUSPENSION UDC PO PRN (12:05)
[2023-11-25] MEDS ORDERED: MAALOX 30 ML SUSP *UDC PO PRN (12:05)
[2023-11-25 14:19] VITALS: TEMP 99
[2023-11-25] MEDS ORDERED: ONDANSETRON 4MG TAB PO PRN (15:15)
[2023-11-25 15:32] VITALS: BP 133/101
[2023-11-25] MEDS: LORazepam 2 MG TAB PO PRN (15:46)
[2023-11-25 16:45] VITALS: BP 169/103
[2023-11-25 17:42] VITALS: BP 166/95
[2023-11-25] MEDS: ACETAMINOPHEN TAB 650MG DOSE (2X325MG) PO PRN (18:31)
[2023-11-25] MEDS: traZODone 50 MG TAB PO PRN (20:00)
[2023-11-25] MEDS: GABAPENTIN 400MG CAP PO SCH (20:00)
[2023-11-25 20:15] VITALS: BP 154/80; TEMP 98.4; O2SAT 97
[2023-11-25] MEDS ORDERED: GABAPENTIN 400MG CAP PO SCH (21:00)
[2023-11-25 21:40] VITALS: BP 156/90; TEMP 97.1; O2SAT 100
[2023-11-26] VITALS (7 sets, daily range): BP systolic 128–150; BP diastolic 81–94; TEMP 97.2–98.3; O2SAT 94–100
[2023-11-26] MEDS: UNRESOLVED CLARIFICATION ENTRY XX SCH (00:01)
[2023-11-26] MEDS: FOLIC ACID 1MG TAB PO SCH (08:09)
[2023-11-26] MEDS: MULTIVITAMINS/MINERALS THERAP 1 TAB PO SCH (08:09)
[2023-11-26] MEDS: SERTRALINE 100 MG TAB PO SCH (08:10)
[2023-11-26] MEDS: CETIRIZINE (ZyrTEC) 10 MG TAB PO SCH (08:10)
[2023-11-26] MEDS: TELMISARTAN 20 MG TAB PO SCH (08:10)
[2023-11-26] MEDS ORDERED: MULTIVITAMINS/MINERALS THERAP 1 TAB PO SCH (09:00)
[2023-11-26] MEDS ORDERED: FOLIC ACID 1MG TAB PO SCH (09:00)
[2023-11-26] MEDS: ACAMPROSATE CALCIUM 333MG TABLET (CAMPRAL) PO SCH (16:34)
[2023-11-26] MEDS: IBUPROFEN 400MG TAB PO PRN (16:35)
[2023-11-26] MEDS: busPIRone 10 MG TAB PO ONE (21:57)
[2023-11-27] MEDS: busPIRone 5 MG TAB PO PRN (01:58)
[2023-11-27 06:23] VITALS: BP_SYST 144; BP_SYST 152; BP_DIAS 88; BP_DIAS 92; TEMP 97.2; O2SAT 98
[2023-11-27 06:38] VITALS: BP 144/88
[2023-11-27 12:11] LABS: ALKALINE PHOSPHATASE 91 U/L (46-116); ALT/SGPT 50 U/L (7.0-40); AST/SGOT 47 U/L (<34); BILIRUBIN,TOTAL 0.5 MG/DL (0.3-1.2); BLOOD UREA NITROGEN 17 MG/DL (9-23); CARBON DIOXIDE LEVEL 26 MMOL/L (20-31); CHLORIDE LEVEL 102 MMOL/L (98-107); CREATININE FOR GFR 0.84 MG/DL (0.70-1.30); GLOMERULAR FILTRATION RATE > 60.0 (>60); GLUCOSE, FASTING 105 MG/DL (60-100); POTASSIUM SERUM 3.7 MMOL/L (3.5-5.1); SODIUM LEVEL 137 MMOL/L (136-145); TOTAL PROTEIN 7.3 G/DL (5.7-8.2)
[2023-11-27 16:47] VITALS: BP 146/77; TEMP 97.5; O2SAT 99
[2023-11-28 06:57] VITALS: BP 131/86; TEMP 96.6; O2SAT 100
[2023-11-28 13:44] VITALS: BP 141/73
[2023-11-28 13:45] VITALS: BP 141/73; TEMP 97.9; O2SAT 98
[2023-11-28 23:00] VITALS: BP 156/95
[2023-11-28] MEDS: diphenhydrAMINE 25MG CAP PO PRN (23:20)
[2023-11-29 06:20] VITALS: BP 137/81; TEMP 96.9; O2SAT 99
[2023-11-29 08:01] VITALS: BP 143/92
[2023-11-29 16:15] VITALS: BP 143/88; TEMP 98.2; O2SAT 100
[2023-11-29 16:18] VITALS: BP 143/88
[2023-11-29] MEDS: busPIRone 10 MG TAB PO PRN (17:39)
[2023-11-30 06:13] VITALS: BP 137/81; TEMP 97.4; O2SAT 99
[2023-11-30 08:10] VITALS: BP 134/83
[2023-11-30] MEDS: NALTREXONE 50 MG TAB PO SCH (08:15)
[2023-11-30] MEDS: PILL CUTTER 1 EACH XX PRN (08:15)
[2023-11-30 16:06] VITALS: BP 142/85; TEMP 98.1; O2SAT 100
[2023-11-30 16:21] VITALS: BP 142/85
[2023-12-01 06:20] VITALS: BP 148/81; TEMP 96.8
[2023-12-01 08:24] VITALS: BP 134/80
[2023-12-01 18:03] VITALS: BP 144/88; TEMP 97.4
[2023-12-02 06:53] VITALS: BP 140/88; TEMP 97.4; O2SAT 99
[2023-12-02 08:50] VITALS: BP 160/82
[2023-12-02 16:14] VITALS: BP 131/74; TEMP 97.3; O2SAT 97
[2023-12-03 06:59] VITALS: BP 140/73; TEMP 96.9; O2SAT 99
[2023-12-03 08:25] VITALS: BP 135/77
[2023-12-03 08:29] VITALS: BP 135/77
[2023-12-03] MEDS ORDERED: DIPH-435 PO (10:14)
[2023-12-03] MEDS ORDERED: BUSP10TA PO (10:14)
[2023-12-03] MEDS ORDERED: ZOLO100T PO (10:14)
[2023-12-03] MEDS ORDERED: ACAM0.05 PO (10:14)
[2023-12-03] MEDS ORDERED: NALT50TA4 PO (10:14)
== END 2023-12-03 10:31 | disposition home or self-care (01) | DRG 885 ==
LOC: M ED 15:10 → M ED INP 11-25 12:05 → M PSY 11-25 14:15
PROVIDERS: ADMIT Student in an Organized Health Care Education/Training Program; ATTEND Student in an Organized Health Care Education/Training Program
DX: F32.89 Other specified depressive episodes (principal); R45.851 Suicidal ideations; F10.24 Alcohol dependence with alcohol-induced mood disorder; F10.239 Alcohol dependence with withdrawal, unspecified; F10.229 Alcohol dependence with intoxication, unspecified; F43.20 Adjustment disorder, unspecified; I10 Essential (primary) hypertension; G47.33 Obstructive sleep apnea (adult) (pediatric); G89.29 Other chronic pain; G47.00 Insomnia, unspecified; M50.222 Other cervical disc displacement at C5-C6 level; F17.220 Nicotine dependence, chewing tobacco, uncomplicated; Z63.5 Disruption of family by separation and divorce; Z98.1 Arthrodesis status; Z79.899 Other long term (current) drug therapy

== ENCOUNTER 2023-12-10 13:28 | Emergency (ER) | payer OTHER ==
[~2023-12-10] VITALS: Ht 188 cm; Wt 113.6 kg
[~2023-12-10 13:28] MED LIST changes: +ACAM0.05 PO; +BUSP10TA PO; +DIPH-435 PO; +NALT50TA4 PO
[2023-12-10] MEDS ORDERED: LORazepam 2 MG TAB PO PRN (14:55)
[2023-12-10] MEDS: MULTIVITAMINS/MINERALS THERAP 1 TAB PO SCH (15:16)
[2023-12-10] MEDS: NS 1,000 ML IV ONE (15:16)
[2023-12-10] MEDS: THIAMINE 100 MG TAB PO SCH (15:16)
[2023-12-10] MEDS: FOLIC ACID 1MG TAB PO SCH (15:16)
[2023-12-10 15:34] LABS: BASO # 0.1 10^3/uL (0.0-0.2); BASO % 0.5 % (0.0-1.0); EOS % 0.1 % (0.0-3.0); HEMATOCRIT 43.6 % (42.0-52.0); HEMOGLOBIN 15.1 g/dl (13.5-17.5); LYMPH # 2.5 10^3/uL (1.5-5.0); LYMPH % 19.4 % (24.0-44.0); MEAN CORPUSCULAR HEMOGLOBIN 28.5 pg (27.0-33.0); MEAN CORPUSCULAR HGB CONC 34.6 g/dl (32.0-36.5); MEAN CORPUSCULAR VOLUME 82.4 fl (80.0-96.0); MONO # 0.8 10^3/uL (0.0-0.8); MONO % 5.8 % (2.0-8.0); NEUTROPHILS # 9.5 10^3/uL (1.5-8.5); NEUTROPHILS % 73.9 % (36.0-66.0); PLATELET COUNT, AUTOMATED 436 10^3/uL (150-450); RED BLOOD COUNT 5.29 10^6/uL (4.30-6.10); WHITE BLOOD COUNT 12.9 10^3/uL (4.0-10.0)
[2023-12-10 15:47] LABS: ETHYL ALCOHOL (ETHANOL) 0.275 % (0.000-0.010)
[2023-12-10 15:49] LABS: CPK CREATINE PHOSPHOKINASE 386 U/L (46-171); SALICYLATE LEVEL < 3.0 MG/DL (<30)
[2023-12-10 15:55] LABS: ALBUMIN 4.4 G/DL (3.2-5.2); ALKALINE PHOSPHATASE 105 U/L (46-116); ALT/SGPT 42 U/L (7.0-40); AST/SGOT 47 U/L (<34); BILIRUBIN,DIRECT 0.2 MG/DL (<0.4); BILIRUBIN,TOTAL 0.6 MG/DL (0.3-1.2); BLOOD UREA NITROGEN < 5 MG/DL (9-23); CALCIUM LEVEL 9.9 MG/DL (8.5-10.1); CARBON DIOXIDE LEVEL 25 MMOL/L (20-31); CHLORIDE LEVEL 99 MMOL/L (98-107); CREATININE FOR GFR 0.78 MG/DL (0.70-1.30); GLOMERULAR FILTRATION RATE > 60.0 (>60); GLUCOSE, FASTING 122 MG/DL (60-100); POTASSIUM SERUM 3.2 MMOL/L (3.5-5.1); SODIUM LEVEL 136 MMOL/L (136-145); TOTAL PROTEIN 7.7 G/DL (5.7-8.2)
[2023-12-10 16:33] LABS: AMPHETAMINES LEVEL URINE NEGATIVE (NEGATIVE); BARBITURATES URINE NEGATIVE (NEGATIVE); COCAINE METABOLITE URINE NEGATIVE (NEGATIVE); METHADONE URINE NEGATIVE (NEGATIVE); OPIATES URINE NEGATIVE (NEGATIVE); PHENCYCLIDINE URINE NEGATIVE (NEGATIVE)
[2023-12-10 16:34] LABS: BENZODIAZEPINES URINE NEGATIVE (NEGATIVE); CANNABINOIDS URINE NEGATIVE (NEGATIVE)
[2023-12-10 17:55] VITALS: BP 120/76; TEMP 98; O2SAT 100
== END 2023-12-10 18:00 | disposition home or self-care (01) ==
LOC: M ED 13:28
DX: F10.120 Alcohol abuse with intoxication, uncomplicated (principal); I10 Essential (primary) hypertension; F32.A Depression, unspecified; G47.33 Obstructive sleep apnea (adult) (pediatric); Z91.09 Other allergy status, other than to drugs and biological substances; Z79.899 Other long term (current) drug therapy

== ENCOUNTER 2024-01-27 08:27 | Inpatient (IN) | payer OTHER ==
[~2024-01-27] VITALS: Ht 188 cm; Wt 123.4 kg
[~2024-01-27 08:27] MED LIST changes: +BUPR-597 PO; -BUPR300T92 PO; +ONDA-282 PO; -ONDA4TAB6 PO
[2024-01-27] MEDS ORDERED: HYDR-3363 PO (08:40)
[2024-01-27] MEDS ORDERED: DISU1TAB7 (09:19)
[2024-01-27 09:27] LABS: HEMATOCRIT 41.5 % (42.0-52.0); HEMOGLOBIN 14.6 g/dl (13.5-17.5); MEAN CORPUSCULAR HGB CONC 35.2 g/dl (32.0-36.5); MEAN CORPUSCULAR VOLUME 82.3 fl (80.0-96.0); PLATELET COUNT, AUTOMATED 386 10^3/uL (150-450); RED BLOOD COUNT 5.04 10^6/uL (4.30-6.10); WHITE BLOOD COUNT 7.9 10^3/uL (4.0-10.0)
[2024-01-27 09:40] LABS: ETHYL ALCOHOL (ETHANOL) 0.106 % (0.000-0.010)
[2024-01-27 09:41] LABS: ALBUMIN 4.3 G/DL (3.2-5.2); ALKALINE PHOSPHATASE 79 U/L (46-116); ALT/SGPT 61 U/L (7.0-40); AST/SGOT 48 U/L (<34); BILIRUBIN,DIRECT 0.2 MG/DL (<0.4); BILIRUBIN,TOTAL 0.7 MG/DL (0.3-1.2); BLOOD UREA NITROGEN 8 MG/DL (9-23); CALCIUM LEVEL 9.7 MG/DL (8.5-10.1); CARBON DIOXIDE LEVEL 26 MMOL/L (20-31); CHLORIDE LEVEL 94 MMOL/L (98-107); CREATININE FOR GFR 0.72 MG/DL (0.70-1.30); GLOMERULAR FILTRATION RATE > 60.0 (>60); GLUCOSE, FASTING 116 MG/DL (60-100); POTASSIUM SERUM 3.2 MMOL/L (3.5-5.1); SALICYLATE LEVEL < 3.0 MG/DL (<30); SODIUM LEVEL 132 MMOL/L (136-145); TOTAL PROTEIN 7.7 G/DL (5.7-8.2)
[2024-01-27 09:44] LABS: THYROID STIMULATING HORMONE 2.137 uIU/ML (0.55-4.78)
[2024-01-27 10:20] LABS: AMPHETAMINES LEVEL URINE NEGATIVE (NEGATIVE); BARBITURATES URINE NEGATIVE (NEGATIVE); BENZODIAZEPINES URINE NEGATIVE (NEGATIVE); CANNABINOIDS URINE NEGATIVE (NEGATIVE); COCAINE METABOLITE URINE NEGATIVE (NEGATIVE); METHADONE URINE NEGATIVE (NEGATIVE); OPIATES URINE NEGATIVE (NEGATIVE); PHENCYCLIDINE URINE NEGATIVE (NEGATIVE)
[2024-01-27] MEDS: POTASSIUM CHLORIDE 10MEQ SR TABLET PO ONE (13:20)
[2024-01-27] MEDS: OXAZEPAM 15MG CAP PO ONE (14:55)
[2024-01-27] MEDS: ONDANSETRON 4MG ORAL DISINTEGRATING TAB PO ONE (14:55)
[2024-01-27] MEDS ORDERED: FISH10002 PO (15:04)
[2024-01-27] MEDS ORDERED: NALT50TA4 PO (15:04)
[2024-01-27] MEDS ORDERED: TRAZ-252 PO (15:04)
[2024-01-27] MEDS ORDERED: MAALOX 30 ML SUSP *UDC PO PRN (15:05)
[2024-01-27] MEDS ORDERED: HOME MED LIST COMPLETE! XX SCH (15:05)
[2024-01-27] MEDS ORDERED: MOM 30ML SUSPENSION UDC PO PRN (15:05)
[2024-01-27] MEDS: FOLIC ACID 1MG TAB PO SCH (15:20)
[2024-01-27] MEDS: THIAMINE 100 MG TAB PO SCH (15:20)
[2024-01-27] MEDS: MULTIVITAMINS/MINERALS THERAP 1 TAB PO SCH (15:20)
[2024-01-27 16:05] VITALS: BP 170/88
[2024-01-27] MEDS: diphenhydrAMINE 25MG CAP PO PRN (17:21)
[2024-01-27] MEDS: LORazepam 2 MG TAB PO PRN (17:21)
[2024-01-27 18:14] VITALS: BP 170/88; TEMP 99.5; O2SAT 96
[2024-01-27] MEDS: traZODone 50 MG TAB PO PRN (21:11)
[2024-01-27] MEDS: IBUPROFEN 400MG TAB PO PRN (21:12)
[2024-01-28 04:14] VITALS: BP 161/94; TEMP 96.9; O2SAT 100
[2024-01-28 06:25] VITALS: BP 119/70; TEMP 97.6; O2SAT 98
[2024-01-28 07:58] VITALS: BP 144/82
[2024-01-28] MEDS: ACETAMINOPHEN TAB 650MG DOSE (2X325MG) PO PRN (11:11)
[2024-01-28] MEDS: CETIRIZINE (ZyrTEC) 10 MG TAB PO SCH (13:42)
[2024-01-28] MEDS: NALTREXONE 50 MG TAB PO SCH (13:42)
[2024-01-28 15:59] VITALS: BP 138/86
[2024-01-28 16:04] VITALS: BP 138/86; TEMP 97.5; O2SAT 97
[2024-01-28] MEDS: MIRTAZAPINE 15 MG TAB PO SCH (20:07)
[2024-01-28] MEDS: hydrOXYzine 50 MG TAB PO SCH (20:07)
[2024-01-28] MEDS: GABAPENTIN 400MG CAP PO SCH (20:07)
[2024-01-28 22:00] VITALS: BP 150/88
[2024-01-29] MEDS: traZODone 50 MG TAB PO ONE (02:50)
[2024-01-29 05:43] VITALS: BP 148/87; TEMP 97.8; O2SAT 100
[2024-01-29] MEDS: TELMISARTAN 20 MG TAB PO SCH (08:13)
[2024-01-29] MEDS: SERTRALINE HCL 50 MG TAB PO SCH (08:13)
[2024-01-29] MEDS: OMEGA-3 1000MG CAPSULE PO SCH (08:13)
[2024-01-29] MEDS: VITAMIN D 1,000 INTERNATIONAL UNITS TABLET PO SCH (08:13)
[2024-01-29] MEDS: GABAPENTIN 400MG CAP PO SCH (08:13)
[2024-01-29 10:25] VITALS: BP 155/82
[2024-01-29] MEDS ORDERED: PROPRANOLOL 20 MG TAB PO PRN (17:50)
[2024-01-29 18:50] VITALS: BP 162/76; TEMP 98.9; O2SAT 98
[2024-01-29] MEDS: PRAZOSIN 1 MG CAP PO SCH (20:42)
[2024-01-30 06:36] VITALS: BP 148/90; TEMP 97.8; O2SAT 98
[2024-01-30 16:00] VITALS: BP 138/79; TEMP 97.7; O2SAT 98
[2024-01-30] MEDS: RAMELTEON 8 MG TAB (ROZEREM) PO PRN (20:45)
[2024-01-30] MEDS: hydrOXYzine 50 MG TAB PO PRN (22:50)
[2024-01-31 06:20] VITALS: BP 137/79; TEMP 97; O2SAT 98
[2024-01-31 18:00] VITALS: BP 113/64; TEMP 97; O2SAT 100
[2024-01-31] MEDS: MIRTAZAPINE 15 MG TAB PO PRN (20:30)
[2024-02-01 06:25] VITALS: BP 132/81; TEMP 97.2; O2SAT 100
[2024-02-01 18:00] VITALS: BP 148/82; TEMP 97.1; O2SAT 97
[2024-02-01 21:11] VITALS: BP 156/94
[2024-02-02 06:13] VITALS: BP 125/72; TEMP 97.2; O2SAT 100
[2024-02-02 18:51] VITALS: BP 143/73; TEMP 98.6
[2024-02-03 06:11] VITALS: BP 115/76; TEMP 97.1; O2SAT 96
[2024-02-03 08:02] VITALS: BP 150/85
[2024-02-03 08:07] VITALS: BP 150/85
[2024-02-03] MEDS ORDERED: MIRT1TAB16 PO (09:15)
[2024-02-03] MEDS ORDERED: GABA-284 PO ×2 (09:15→15:11)
[2024-02-03] MEDS ORDERED: SERT50TA29 PO (09:15)
[2024-02-03] MEDS ORDERED: NALT50TA4 PO (09:15)
[2024-02-03] MEDS ORDERED: DIPH-435 PO (09:15)
[2024-02-03] MEDS ORDERED: PROP20TA PO (09:15)
[2024-02-03] MEDS ORDERED: PRAZ1CAP PO (09:15)
[2024-02-03] MEDS ORDERED: GABA800T4 PO (09:15)
[2024-02-03] MEDS ORDERED: MIRT-89 PO (15:11)
[2024-02-03] MEDS ORDERED: PROP20TA72 PO (15:11)
[2024-02-03] MEDS ORDERED: PRAZ2CAP PO (15:11)
[2024-02-03] MEDS ORDERED: SERT-141 PO (15:11)
== END 2024-02-03 11:38 | disposition home or self-care (01) | DRG 881 ==
LOC: M ED 08:27 → M ED INP 15:01 → M PSY 16:04
PROVIDERS: ADMIT Student in an Organized Health Care Education/Training Program; ATTEND Student in an Organized Health Care Education/Training Program
DX: F32.9 Major depressive disorder, single episode, unspecified (principal); F10.24 Alcohol dependence with alcohol-induced mood disorder; R45.851 Suicidal ideations; F43.20 Adjustment disorder, unspecified; F41.9 Anxiety disorder, unspecified; Z98.1 Arthrodesis status; I10 Essential (primary) hypertension; M54.2 Cervicalgia; G89.29 Other chronic pain; Z79.899 Other long term (current) drug therapy; G47.33 Obstructive sleep apnea (adult) (pediatric); F10.229 Alcohol dependence with intoxication, unspecified; E66.9 Obesity, unspecified; Z63.5 Disruption of family by separation and divorce; Z87.891 Personal history of nicotine dependence; Z63.8 Other specified problems related to primary support group; Z65.3 Problems related to other legal circumstances; Z68.34 Body mass index [BMI] 34.0-34.9, adult

== ENCOUNTER 2024-02-05 10:16 | Inpatient (IN) | payer OTHER ==
[~2024-02-05] VITALS: Ht 188 cm; Wt 119.1 kg
[~2024-02-05 10:16] MED LIST changes: +DISU1TAB7; +FISH10002 PO; +GABA-284 PO; +HYDR-3363 PO; +MIRT-89 PO; +MIRT1TAB16 PO; +PRAZ1CAP PO; +PRAZ2CAP PO; +PROP20TA PO; +PROP20TA72 PO; +SERT-141 PO
[2024-02-05] MEDS ORDERED: LORazepam 2 MG TAB PO PRN ×2 (10:35→22:10)
[2024-02-05 11:13] LABS: HEMATOCRIT 43.4 % (42.0-52.0); HEMOGLOBIN 14.3 g/dl (13.5-17.5); MEAN CORPUSCULAR HEMOGLOBIN 28.6 pg (27.0-33.0); MEAN CORPUSCULAR HGB CONC 32.9 g/dl (32.0-36.5); MEAN CORPUSCULAR VOLUME 86.8 fl (80.0-96.0); PLATELET COUNT, AUTOMATED 353 10^3/uL (150-450); WHITE BLOOD COUNT 7.4 10^3/uL (4.0-10.0)
[2024-02-05] MEDS: FOLIC ACID 1MG TAB PO SCH (11:36)
[2024-02-05] MEDS: THIAMINE 100 MG TAB PO SCH ×2 (11:36→22:29)
[2024-02-05] MEDS: MULTIVITAMINS/MINERALS THERAP 1 TAB PO SCH (11:36)
[2024-02-05 11:37] LABS: AMPHETAMINES LEVEL URINE NEGATIVE (NEGATIVE)
[2024-02-05 11:38] LABS: BARBITURATES URINE NEGATIVE (NEGATIVE); BENZODIAZEPINES URINE NEGATIVE (NEGATIVE); CANNABINOIDS URINE NEGATIVE (NEGATIVE); COCAINE METABOLITE URINE NEGATIVE (NEGATIVE); METHADONE URINE NEGATIVE (NEGATIVE); OPIATES URINE NEGATIVE (NEGATIVE); PHENCYCLIDINE URINE NEGATIVE (NEGATIVE)
[2024-02-05 11:40] LABS: ALBUMIN 4.2 G/DL (3.2-5.2); ALKALINE PHOSPHATASE 65 U/L (46-116); ALT/SGPT 70 U/L (7.0-40); AST/SGOT 35 U/L (<34); BILIRUBIN,DIRECT 0.1 MG/DL (<0.4); BILIRUBIN,TOTAL 0.3 MG/DL (0.3-1.2); BLOOD UREA NITROGEN 9 MG/DL (9-23); CALCIUM LEVEL 9.2 MG/DL (8.5-10.1); CARBON DIOXIDE LEVEL 28 MMOL/L (20-31); CHLORIDE LEVEL 107 MMOL/L (98-107); CREATININE FOR GFR 1.02 MG/DL (0.70-1.30); GLOMERULAR FILTRATION RATE > 60.0 (>60); GLUCOSE, FASTING 86 MG/DL (60-100); POTASSIUM SERUM 4.6 MMOL/L (3.5-5.1); SALICYLATE LEVEL < 3.0 MG/DL (<30); SODIUM LEVEL 145 MMOL/L (136-145); TOTAL PROTEIN 7.5 G/DL (5.7-8.2)
[2024-02-05 11:41] LABS: THYROID STIMULATING HORMONE 1.591 uIU/ML (0.55-4.78)
[2024-02-05 12:00] LABS: ETHYL ALCOHOL (ETHANOL) 0.326 % (0.000-0.010)
[2024-02-05] MEDS ORDERED: MOM 30ML SUSPENSION UDC PO PRN (20:05)
[2024-02-05] MEDS ORDERED: MAALOX 30 ML SUSP *UDC PO PRN (20:05)
[2024-02-05] MEDS ORDERED: PROP20TA72 PO (21:02)
[2024-02-05] MEDS ORDERED: MIRT1TAB16 PO (21:02)
[2024-02-05] MEDS ORDERED: GABA-284 PO ×2 (21:02)
[2024-02-05] MEDS ORDERED: PRAZ2CAP PO (21:02)
[2024-02-05] MEDS ORDERED: DIPH25TA4 PO (21:08)
[2024-02-05] MEDS ORDERED: HOME MED LIST COMPLETE! XX SCH (21:10)
[2024-02-05 21:42] VITALS: BP 164/100; TEMP 97.7; O2SAT 96
[2024-02-05] MEDS: traZODone 50 MG TAB PO PRN (22:02)
[2024-02-05] MEDS: IBUPROFEN 400MG TAB PO PRN (22:04)
[2024-02-05] MEDS: diphenhydrAMINE 25MG CAP PO PRN (22:04)
[2024-02-05] MEDS: GABAPENTIN 400MG CAP PO ONE (22:30)
[2024-02-05] MEDS: TELMISARTAN 20 MG TAB PO ONE (22:32)
[2024-02-06] MEDS: ACETAMINOPHEN TAB 650MG DOSE (2X325MG) PO PRN (06:25)
[2024-02-06 06:26] VITALS: BP 140/89
[2024-02-06 07:07] VITALS: BP 140/89; TEMP 97.6; O2SAT 99
[2024-02-06] MEDS: FOLIC ACID 1MG TAB PO SCH (08:02)
[2024-02-06] MEDS: MULTIVITAMINS/MINERALS THERAP 1 TAB PO SCH (08:02)
[2024-02-06] MEDS: SERTRALINE HCL 50 MG TAB PO SCH (09:37)
[2024-02-06] MEDS: hydrOXYzine 50 MG TAB PO SCH (09:37)
[2024-02-06] MEDS: CETIRIZINE (ZyrTEC) 10 MG TAB PO SCH (09:37)
[2024-02-06] MEDS: GABAPENTIN 400MG CAP PO SCH ×2 (09:37→20:49)
[2024-02-06] MEDS: TELMISARTAN 20 MG TAB PO SCH (10:55)
[2024-02-06] MEDS: NALTREXONE 50 MG TAB PO SCH (11:23)
[2024-02-06 15:33] VITALS: BP 159/82
[2024-02-06 15:45] VITALS: BP 140/83; TEMP 97.4; O2SAT 99
[2024-02-06] MEDS: hydrOXYzine 50 MG TAB PO PRN (20:48)
[2024-02-06] MEDS: MIRTAZAPINE 15 MG TAB PO SCH (20:49)
[2024-02-06] MEDS: PRAZOSIN 1 MG CAP PO SCH (20:49)
[2024-02-07 06:40] VITALS: BP 133/80; TEMP 97.2; O2SAT 99
[2024-02-07 14:00] VITALS: BP 138/82
[2024-02-07 16:15] VITALS: BP 138/82; TEMP 97; O2SAT 100
[2024-02-07 22:32] VITALS: BP 111/55
[2024-02-08 06:23] VITALS: BP 124/75; TEMP 98; O2SAT 99
[2024-02-08 14:00] VITALS: BP 121/71
[2024-02-08 16:28] VITALS: BP 121/71; TEMP 97.3; O2SAT 99
[2024-02-08] MEDS: PROPRANOLOL 20 MG TAB PO PRN (20:42)
[2024-02-08 21:00] VITALS: BP 150/85
[2024-02-08] MEDS: diphenhydrAMINE CREAM 30GM TOP PRN (21:29)
[2024-02-09 06:30] VITALS: BP 117/76
[2024-02-09 06:52] VITALS: BP 117/76; TEMP 96.7; O2SAT 99
[2024-02-09 08:08] VITALS: BP 127/74
[2024-02-09] MEDS: OMEGA-3 1000MG CAPSULE PO SCH (13:52)
[2024-02-09 18:11] VITALS: BP 120/60; TEMP 97.6
[2024-02-10 06:28] VITALS: BP 134/90; TEMP 96.6; O2SAT 98
[2024-02-10 08:07] VITALS: BP 136/79
[2024-02-10 18:20] VITALS: BP 148/70; TEMP 97.9
[2024-02-11 06:00] VITALS: BP 126/76; TEMP 97.9; O2SAT 98
[2024-02-11 17:43] VITALS: BP 142/80; TEMP 98.4
[2024-02-12 06:19] VITALS: BP 119/77; TEMP 96.9; O2SAT 99
[2024-02-12 08:05] VITALS: BP 119/77
[2024-02-12] MEDS ORDERED: HYDR-3363 PO (13:03)
[2024-02-12] MEDS ORDERED: DIPHCR TOP (13:03)
[2024-02-12] MEDS ORDERED: BACITRACIN OINTMENT 30GM TUBE TOP PRN (14:35)
[2024-02-12 17:56] VITALS: BP 140/82; TEMP 97.1; O2SAT 100
== END 2024-02-13 02:04 | disposition other institution (70) | DRG 885 ==
LOC: EDBD 10:16 → M ED 10:16 → M ED INP 20:05 → M PSY 21:23
PROVIDERS: ADMIT Student in an Organized Health Care Education/Training Program; ATTEND Student in an Organized Health Care Education/Training Program
DX: F33.1 Major depressive disorder, recurrent, moderate (principal); R45.851 Suicidal ideations; F10.24 Alcohol dependence with alcohol-induced mood disorder; F60.3 Borderline personality disorder; G47.33 Obstructive sleep apnea (adult) (pediatric); I10 Essential (primary) hypertension; E66.9 Obesity, unspecified; F41.9 Anxiety disorder, unspecified; M54.2 Cervicalgia; G89.29 Other chronic pain; Z79.899 Other long term (current) drug therapy; Z11.52 Encounter for screening for COVID-19; Z87.891 Personal history of nicotine dependence; Z63.5 Disruption of family by separation and divorce

== ENCOUNTER 2024-06-08 18:34 | Emergency (ER) | payer OTHER ==
[~2024-06-08 18:34] MED LIST changes: +DIPH25TA4 PO; +DIPHCR TOP; +GABA-1635 PO; -GABA800T4 PO
[2024-06-08 19:29] LABS: HEMATOCRIT 46.3 % (42.0-52.0); MEAN CORPUSCULAR HEMOGLOBIN 27.8 pg (27.0-33.0); MEAN CORPUSCULAR HGB CONC 34.6 g/dl (32.0-36.5); MEAN CORPUSCULAR VOLUME 80.4 fl (80.0-96.0); PLATELET COUNT, AUTOMATED 436 10^3/uL (150-450); RED BLOOD COUNT 5.76 10^6/uL (4.30-6.10); WHITE BLOOD COUNT 13.3 10^3/uL (4.0-10.0)
[2024-06-08 20:00] LABS: SALICYLATE LEVEL < 3.0 MG/DL (<30)
[2024-06-08 20:01] LABS: ALBUMIN 4.6 G/DL (3.2-5.2); ALKALINE PHOSPHATASE 98 U/L (46-116); ALT/SGPT 75 U/L (7.0-40); AST/SGOT 76 U/L (<34); BILIRUBIN,DIRECT 0.2 MG/DL (<0.4); BILIRUBIN,TOTAL 0.6 MG/DL (0.3-1.2); BLOOD UREA NITROGEN 10 MG/DL (9-23); CALCIUM LEVEL 9.9 MG/DL (8.5-10.1); CARBON DIOXIDE LEVEL 23 MMOL/L (20-31); CHLORIDE LEVEL 97 MMOL/L (98-107); CREATININE FOR GFR 0.87 MG/DL (0.70-1.30); GLOMERULAR FILTRATION RATE > 60.0 (>60); GLUCOSE, FASTING 108 MG/DL (60-100); POTASSIUM SERUM 3.8 MMOL/L (3.5-5.1); SODIUM LEVEL 134 MMOL/L (136-145); TOTAL PROTEIN 8.5 G/DL (5.7-8.2)
[2024-06-08 20:03] LABS: THYROID STIMULATING HORMONE 2.643 uIU/ML (0.55-4.78)
[2024-06-08 20:27] LABS: ETHYL ALCOHOL (ETHANOL) 0.307 % (0.000-0.010)
[2024-06-08 21:28] LABS: BARBITURATES URINE NEGATIVE (NEGATIVE); COCAINE METABOLITE URINE NEGATIVE (NEGATIVE)
[2024-06-08 21:29] LABS: BENZODIAZEPINES URINE NEGATIVE (NEGATIVE); CANNABINOIDS URINE NEGATIVE (NEGATIVE); METHADONE URINE NEGATIVE (NEGATIVE); OPIATES URINE NEGATIVE (NEGATIVE); PHENCYCLIDINE URINE NEGATIVE (NEGATIVE)
[2024-06-08 21:56] LABS: AMPHETAMINES LEVEL URINE NEGATIVE (NEGATIVE)
[2024-06-09] MEDS ORDERED: GABA-1172 PO (00:09)
[2024-06-09] MEDS ORDERED: ATOR1TAB21 PO (00:09)
[2024-06-09] MEDS ORDERED: PANT40TA29 PO (00:09)
[2024-06-09] MEDS ORDERED: MELO7.5T35 PO (00:09)
[2024-06-09] MEDS ORDERED: HOME MED LIST COMPLETE! XX SCH (00:10)
[2024-06-09] MEDS: ONDANSETRON 4MG ORAL DISINTEGRATING TAB PO ONE (04:10)
[2024-06-09] MEDS: OXAZEPAM 10MG CAP PO ONE (04:24)
[2024-06-09] MEDS: NICOTINE 21MG/24HR 1 EA TRANSDERMAL TD ONE (05:37)
[2024-06-09] MEDS: CETIRIZINE (ZyrTEC) 10 MG TAB PO SCH (09:00)
[2024-06-09] MEDS: TELMISARTAN 20 MG TAB PO SCH (09:00)
[2024-06-09] MEDS: PANTOPRAZOLE 40MG TAB (PROTONIX) PO SCH (11:35)
[2024-06-09] MEDS: VITAMIN D 1,000 INTERNATIONAL UNITS TABLET PO SCH (11:35)
[2024-06-09] MEDS: buPROPion **XL** TABLET 150MG (WELLBUTRIN XL) PO SCH (11:36)
[2024-06-09] MEDS: MULTIVITAMINS/MINERALS THERAP 1 TAB PO SCH (11:36)
[2024-06-09] MEDS: SERTRALINE 100 MG TAB PO SCH (11:36)
[2024-06-09 11:37] VITALS: BP 138/75
[2024-06-09 12:29] VITALS: BP 157/86; TEMP 97.7; O2SAT 100
[2024-06-09] MEDS: OMEGA-3 1000MG CAPSULE PO SCH (13:09)
[2024-06-09] MEDS: NALTREXONE 50 MG TAB PO SCH (13:10)
[2024-06-09] MEDS: MELOXICAM (MOBIC) 7.5 MG TAB PO SCH (13:10)
[2024-06-09] MEDS ORDERED: ATORVASTATIN 20 MG TAB PO SCH (21:00)
[2024-06-09] MEDS ORDERED: GABAPENTIN 300 MG CAP PO SCH (21:00)
== END 2024-06-09 13:18 | disposition home or self-care (01) ==
LOC: M ED 18:34
DX: F10.120 Alcohol abuse with intoxication, uncomplicated (principal); F10.14 Alcohol abuse with alcohol-induced mood disorder; G47.33 Obstructive sleep apnea (adult) (pediatric); I10 Essential (primary) hypertension; Z88.8 Allergy status to other drugs, medicaments and biological substances; Z91.09 Other allergy status, other than to drugs and biological substances; Z79.810 Long term (current) use of selective estrogen receptor modulators (SERMs); Z79.899 Other long term (current) drug therapy

== ENCOUNTER → 2025-08-22 | Outpatient (REF) | payer OTHER ==
[~2025-08-22] MED LIST changes: +ATOR1TAB21 PO; -BUPR-597 PO; +BUPR-766 PO; -FISH10002 PO; +GABA-1172 PO; +MELO7.5T35 PO; +PANT40TA29 PO; +[UNRECOGNIZED DRUG - CODE] PO
== END ==
LOC: M LAB REF 16:42
PROVIDERS: ATTEND Neuromusculoskeletal Medicine, Sports Medicine
DX: M16.11 Unilateral primary osteoarthritis, right hip (principal)